=== PATIENT | female | born 1940 | race Caucasian/White ===

== ENCOUNTER 2021-06-26 18:13 | Emergency (ER) | payer MEDICARE ==
[2021-06-26 18:59] VITALS: TEMP 97.9
[2021-06-26] MEDS ORDERED: LIDOCAINE/EPINEPHR/TETRACAINE 5 ML BOTTLE TOPICAL ONE (19:39)
[2021-06-26] MEDS ORDERED: DIPH,PERTUS(ACELL)TETVAC-LF 0.5 ML VIAL IM ONE (19:46)
[2021-06-26] MEDS ORDERED: ACETAMINOPHEN TAB 500 MG TAB PO STA (19:48)
--- NOTE | 2021-06-26 21:06 | XR ---
EXAMINATION TYPE: XR ribs RT w pa chest xray DATE OF EXAM: 06/26/2021 CLINICAL HISTORY: Rib pain. Fall while walking dog, right-sided rib pain TECHNIQUE: Single frontal view of the chest is obtained. 4 views of the right ribs obtained. COMPARISON: None FINDINGS: Cardiac mediastinal silhouette normal in size. Pulmonary vasculature normal. No acute focal airspace opacity, pleural effusion, or pneumothorax. There are mildly displaced fractures of right r ibs 7 and 8 anterolaterally, and questionable nondisplaced fracture of rib 9 anterolaterally. IMPRESSION: 1. Mildly displaced fractures of right ribs 7 and 8 anterolaterally. Questionable nondisplaced fractu re of right rib 9 anterolaterally. 2. No acute pulmonary process.
--- NOTE | 2021-06-26 21:21 | ED ---
General Adult HPI <Raleigh Soni - Last Filed: 06/26/21 21:25> - General Source: patient, RN notes reviewed, old records reviewed Mode of arrival: ambulatory Limitations: no limitations <Byron Lewis - Last Filed: 06/26/21 22:45> - General Chief complaint: Head Injury Stated complaint: Fall/Head Injury Time Seen by Provider: 06/26/21 19:14 - History of Present Illness Initial comments: I evaluated the patient and she was placed in a room. Patient is a 81-year-old female presents emergency Department following a trip and fall. Patient is a history of asthma. She is not on blood thinners. Patient was walking her dog when the dog jolted and attempted to to squirrel. Patient was pulled down on the ground. She landed primarily onto her right ribs. She also bumped her head on the pavement. She denies loss of consciousness. She was ambulatory afterwards. She denies any headache, fevers, chills. Denies any difficulty in breathing, abdominal pain, nausea, vomiting. Denies any blurry vision, weakness, numbness. She states she feels fine other than pain in her right ribs as well as some bleeding over a small laceration over her right forehead. She is not up-to-date on her tetanus shot. She'll ice is no acute complaints at this time. She denies any back pain. (Byron Lewis) - Related Data Home Medications Medication Instructions Recorded Confirmed Albuterol Inhaler [Ventolin Hfa 2 puff INHALATION RT-Q4H PRN 06/26/21 06/26/21 Inhaler] Atorvastatin [Lipitor] 20 mg PO HS 06/26/21 06/26/21 Beclomethasone Dip 80 Mcg/Puff 1 puff INHALATION RT-BID 06/26/21 06/26/21 [Qvar 80 mcg] Calcium Carbonate [Calcium] 600 mg PO DAILY 06/26/21 06/26/21 Hyoscyamine Sulfate [Levsin-Sl] 0.125 mg SL TID 06/26/21 06/26/21 LORazepam 0.5 mg PO BID PRN 06/26/21 06/26/21 Levothyroxine Sodium 100 mcg PO AC-BRKFST 06/26/21 06/26/21 Multivit with Calcium,Iron,Min 1 tab PO DAILY 06/26/21 06/26/21 [Women's Multivitamin] Sertraline [Zoloft] 25 mg PO HS 06/26/21 06/26/21 Ubidecarenone [Co Q-10] 100 mg PO DAILY 06/26/21 06/26/21 rOPINIRole HCL [Requip] 2 mg PO HS 06/26/21 06/26/21 Previous Rx's Medication Instructions Recorded Lidocaine 5% Patch [Lidoderm 5% 1 patch TOPICAL DAILY PRN 14 Days 06/26/21 Patch] #14 patch Allergies Allergy/AdvReac Type Severity Reaction Status Date / Time Penicillins Allergy Itching Verified 06/26/21 21:09 Sulfa (Sulfonamide Allergy Rash/Hives/ Verified 06/26/21 21:09 Antibiotics) Fever Review of Systems ROS Other: All systems not noted in ROS Statement are negative. <Raleigh Soni - Last Filed: 06/26/21 21:25> ROS Other: All systems not noted in ROS Statement are negative. <Byron Lewis - Last Filed: 06/26/21 22:45> ROS Statement: Those systems with pertinent positive or pertinent negative responses have been documented in the HPI. Review of Systems: CONST: Denies fever EYES: Denies blurry vision ENT: Denies nasal congestion C/V: Denies Chest pain RESP: Denies shortness of breath GI: Denies abdominal pain : Denies dysuria SKIN: Endorses forehead laceration MSK: Endorses right-sided rib pain NEURO: Denies headache (Byron Lewis) Past Medical History Past Medical History: No Reported History History of Any Multi-Drug Resistant Organisms: None Reported Past Surgical History: No Surgical Hx Reported Past Psychological History: Anxiety, Depression Smoking Status: Never smoker Past Alcohol Use History: Daily Past Drug Use History: None Reported <Byron Lewis - Last Filed: 06/26/21 22:45> General Exam Limitations: no limitations <Byron Lewis - Last Filed: 06/26/21 22:45> - General Exam Comments Initial Comments: General: Appears in no acute distress. HEAD: Patient has a small 1-2 cm linear laceration located over her right forehead above her right eyebrow. There is a small contusion surrounding the site. She is no obvious step-offs or deformities of the skull. No other obvious injuries of the skull. Bowel sign negative. Hemotympanum negative. Raccoon eyes negative. No tenderness to palpation over the facial bones. EYES: PERRLA, EOMI, conjunctiva normal, no discharge. Pupils are 3 mm and equally reactive. ENT: Hearing grossly intact, normal oropharynx. RESPIRATORY: Clear breath sounds bilaterally. No wheezes, rales, or rhonchi. C/V: Regular rate and rhythm. S1 and S2 auscultated, no edema, peripheral pulses 2+ and intact throughout ABD: Abd is soft, nontender, nondistended EXT:. Patient has no midline cervical, thoracic, lumbar spine tenderness palpation of her pelvis is stable. She is no tenderness palpation of any extremity. She does have some tenderness palpation over the inferior ribs on the right side in the mid to anterior axillary lines. SKIN: 1-2 semilunar laceration located over the right forehead. NEURO: Alert and oriented x 4. Cranial nerves II-XII intact. No focal sensory or strength deficits. Patient is able to ambulate without difficulty. Cerebellar function is intact as evident by normal finger nose testing. GCS is 15. NIH is 0. (Byron Lewis) Course Vital Signs 06/26/21 06/26/21 18:51 22:12 Temperature 97.9 F Pulse Rate 66 85 Respiratory 20 16 Rate Blood Pressure 163/86 159/88 O2 Sat by Pulse 96 95 Oximetry Procedures - Laceration Laceration #1 Consent Obtained: verbal consent Indication: laceration Site: face Size (cm): 1 Description: linear Depth: simple, single layer Anesthetic Used: lidocaine 1% (LET) Type of Sutures: nylon Size of Sutures: 5-0 Number of Sutures: 2 Technique: simple, interrupted Patient Tolerated Procedure: well, no complications <Raleigh Soni - Last Filed: 06/26/21 21:25> - Laceration Laceration #1 Additional Comments: Secured with Steri-Strips (Raleigh Soni) Medical Decision Making <Byron Lewis - Last Filed: 06/26/21 22:45> - Medical Decision Making Based on patient's presentation and physical exam, I'm concerned for possible rib fractures on the right. She also has a linear laceration over her right forehead that will require closure with sutures. Based on Medium head CT rules, she does not require a CT brain at this time. Neuro exam is completely normal. Patient was in agreement this plan. She'll be given Tylenol for analgesia, a tetanus booster, and a mid-level provider will close her laceration. We will also obtain chest x-ray with right-sided ribs. She was in agreement this plan. Please see the separate procedure note for laceration repair. She tolerated the procedure well. Chest x-ray revealed mildly displaced fractures of right ribs 7 and 8 anterolaterally questionable nondisplaced fracture of the right rib 9 anterolaterally. There is no acute pulmonary process. Reevaluation, patient's lacerations been closed. I discussed with her the results of her chest x-ray. She has suffered broken ribs previously, and understands that she does not require surgical attention at this time. I do believe it is safer to be discharged home. We will provide her with an incentive spirometer as well as lidocaine patches. We'll provide with lidocaine patch in the department. She was in agreement this plan. I will provide the patient with a prescription for lidocaine patch. I instructed the patient to follow up with their PCP in the next 3 days. . I explained that the patient should return to the emergency department if they experience any worsening symptoms. Strict return precautions were discussed with the patient. The patient expressed understanding of these instructions. I answered all questions that the patient had. The patient was discharged home in fair condition with their prescriptions and follow up information. (Byron Lewis) Disposition <Raleigh Soni - Last Filed: 06/26/21 21:25> Is patient prescribed a controlled substance at d/c from ED?: No <Byron Lewis - Last Filed: 06/26/21 22:45> Clinical Impression: Fall, Laceration of forehead, Sutured skin wound, Rib fractures Disposition: HOME SELF-CARE Condition: Fair Instructions (If sedation given, give patient instructions): Rib Fracture (ED) Prescriptions: Lidocaine 5% Patch [Lidoderm 5% Patch] 1 patch TOPICAL DAILY PRN 14 Days #14 patch PRN Reason: Pain Referrals: Nonstaff,Physician [Primary Care Provider] - 1-2 days Lucille Danielle DO [Doctor of Osteopathic Medicine] - 1-2 days
[2021-06-26] MEDS ORDERED: LIDOCAINE 5% PATCH TOPICAL STA (22:05)
[2021-06-26 22:13] VITALS: BP 159/88; PULSE 85; RESP 16
== END 2021-06-26 22:13 | disposition home or self-care (01) ==
LOC: EC 18:13
DX: S22.41XA Multiple fractures of ribs, right side, initial encounter for closed fracture (principal); S01.81XA Laceration without foreign body of other part of head, initial encounter; J45.909 Unspecified asthma, uncomplicated; F32.9 Major depressive disorder, single episode, unspecified; F41.9 Anxiety disorder, unspecified; Z79.51 Long term (current) use of inhaled steroids; Z79.899 Other long term (current) drug therapy; Z88.0 Allergy status to penicillin; Z88.2 Allergy status to sulfonamides; Z23 Encounter for immunization; W01.0XXA Fall on same level from slipping, tripping and stumbling without subsequent striking against object, initial encounter; Y93.K1 Activity, walking an animal
CPT/HCPCS: 12011; 90471; 90715; 99284

== ENCOUNTER → 2023-07-02 | Outpatient (CLI) | payer MEDICARE ==
[2023-07-02 16:27] LABS: African American GFR (CKD) 87 (>60 ml/min/1.73 sqM); Blood Urea Nitrogen 13 mg/dL (7-17); Non-African American GFR(CKD) 75 (>60 ml/min/1.73 sqM)
--- NOTE | 2023-07-02 18:14 | CA ---
Transthoracic Echo Report Name: Karen Ortega Age: 83 Gender: F : 1940 Exam Date: 07/02/2023 16:08 Exam Location: [facility] Ht (in): 63 Wt (lb): 160 Ordering Physician: Miranda Pickering MD Attending/Referring Phys: [employer] Machine Operator Obdulia Tapia [facility] Procedure CPT: Indications: R06.09 Dyspnea Cardiac Hx: Technical Quality: Fair Contrast 1: Total Dose (mL): Contrast 2: Total Dose (mL): MEASUREMENTS (Male / Female) Normal Values 2D ECHO LV Diastolic Diameter PLAX 4.2 cm 4.2 - 5.9 / 3.9 - 5.3 cm LV Systolic Diameter PLAX 3.1 cm IVS Diastolic Thickness 0.9 cm 0.6 - 1.0 / 0.6 - 0.9 cm LVPW Diastolic Thickness 0.8 cm 0.6 - 1.0 / 0.6 - 0.9 cm LV Relative Wall Thickness 0.4 LVOT Diameter 2.0 cm Ascending Aorta Diameter 4.0 cm M-MODE Aortic Root Diameter MM 3.1 cm LA Systolic Diameter MM 3.6 cm LA Ao Ratio MM 1.2 AV Cusp Separation MM 1.9 cm DOPPLER AV Peak Velocity 113.0 cm/s AV Peak Gradient 5.1 mmHg AV Mean Velocity 80.7 cm/s AV Mean Gradient 2.9 mmHg AV Velocity Time Integral 20.7 cm AI Peak Velocity 483.1 cm/s AI Peak Gradient 93.4 mmHg AI Pressure Half Time 571.7 ms LVOT Peak Velocity 95.0 cm/s LVOT Peak Gradient 3.6 mmHg LVOT Velocity Time Integral 18.1 cm LVOT Stroke Volume 58.4 cm??? LVOT Stroke Volume Index 33.2 ml/m??? LVOT Cardiac Index 2279.7 cm???/min???m??? AV Area Cont Eq vti 2.8 cm??? AV Area Cont Eq pk 2.7 cm??? Mitral E Point Velocity 27.6 cm/s Mitral A Point Velocity 56.6 cm/s Mitral E to A Ratio 0.5 MV Deceleration Time 177.1 ms LV E' Lateral Velocity 3.2 cm/s Mitral E to LV E' Lateral Ratio 8.7 LV E' Septal Velocity 4.6 cm/s Mitral E to LV E' Septal Ratio 6.0 Right Atrial Pressure 3.0 mmHg FINDINGS Left Ventricle Left ventricular wall thickness normal. Left ventricular cavity size normal. Low normal left ventricular systolic function with no obvious regional wall motion abnormalities. Left ventricular ejection fraction is estimated at 50- 55%. Right Ventricle Normal right ventricular size and function. Unable to estimate the right ventricular systolic pressure. Right Atrium Normal right atrial size. Left Atrium Normal left atrial size. Mitral Valve Structurally normal mitral valve. Mitral valve thickened. No mitral regurgitation. Aortic Valve Trileaflet aortic valve. Moderate aortic regurgitation.aortic valve sclerosis. Tricuspid Valve Structurally normal tricuspid valve. Trace tricuspid regurgitation. Pulmonic Valve Structurally normal pulmonic valve. No pulmonic regurgitation. Pericardium No pericardial effusion. Echo free space anterior to the right ventricle likely represents a fat pad. Aorta Normal size aortic root and mildly dilated proximal ascending aorta. CONCLUSIONS 1. Left ventricular systolic function borderline normal 2. Moderate aortic regurgitation, aortic sclerosis with no evidence of stenosis Previewed by: Dr. Flaquito Burgess MD (Electronically Signed) Final Date: 02 July 2023 18:13
--- NOTE | 2023-07-04 18:17 | CT ---
EXAMINATION TYPE: CT angio chest CT DLP: 340.3 mGycm, Automated exposure control for dose reduction was used. DATE OF EXAM: 07/02/2023 5:05 PM COMPARISON: Chest radiograph 06/24/2023 CLINICAL INDICATION:Female, 83 years old with history of R06.09 DYSPNEA; dyspnea x 4 months TECHNIQUE/CONTRAST: CTA scan of the thorax is performed with IV Contrast, patient injected with 80 cc mL of Isovue 370, M IP images are created and reviewed these are created on a separate workstation.. FINDINGS: Pulmonary Artery: There is no evidence for a filling defect within the pulmonary vasculature to sugge st acute pulmonary embolism. The pulmonary artery is of normal size. Lungs/Pleura: No evidence of focal consolidation, pleural effusion or pneumothorax. Streaky atelectas is present within the lung bases and along the posterior peripherally. Airway: Large airways are patent. Mild centrilobular emphysema changes. Heart: Heart is within normal limits for size. 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 Atherosclerosis of the arterial vasculatu re. Mediastinum: No gross evidence of adenopathy. Small hiatal hernia is present. Musculoskeletal: Mild degenerative disc disease changes are present throughout the thoracolumbar spin e. Soft Tissues: Unremarkable. Lower neck: No significant findings. Upper Abdomen: No significant findings. IMPRESSION: 1. No evidence of pulmonary embolism. 2. Mild centrilobular emphysema. 3. 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 4. Cdqn-rx-vkjqxswh coronary artery atherosclerosis. 5. Small hiatal hernia.
== END | disposition home or self-care (01) ==
LOC: RADCTMAIN 15:31
PROVIDERS: ATTEND Internal Medicine Critical Care Medicine
DX: J43.2 Centrilobular emphysema (principal); K44.9 Diaphragmatic hernia without obstruction or gangrene; I25.10 Atherosclerotic heart disease of native coronary artery without angina pectoris; R06.09 Other forms of dyspnea
CPT/HCPCS: 93306; 82565; 84520; 71275; 36415; Q9967

== ENCOUNTER → 2023-07-28 | Outpatient (CLI) | payer MEDICARE ==
--- NOTE | 2023-07-28 10:44 | MR ---
EXAMINATION TYPE: MR brain wo con DATE OF EXAM: 07/28/2023 COMPARISON: NONE HISTORY: Mild cognitive impairment, Parkinson's disease. TECHNIQUE: T1-weighted sagittal, T2, FLAIR, and diffusion axial, and T2 coronal coronal views of the brain are submitted. FINDINGS: There is no evidence of acute ischemia. Moderate generalized degenerative change. Multiple prominent Virchow-Theodore spaces are seen in association with hypertension. Mild confluent and focal areas of abn ormal signal white matter nonspecific but most of a remote white matter ischemia. There is no mass ef fect. Craniocervical junction maintained. Sella turcica has a normal appearance. Orbits are symmetric and there are changes of mild to moderate chronic sinusitis. Minimal left-sided mastoiditis. Prominent cisterna magna. No cerebellopontine angle mass. IMPRESSION: 1. No acute intracranial process. 2. Zprk-ea-oobzcpif degenerative and mild remote ischemic white matter change. 3. Jzlt-te-mmbgabza chronic sinusitis.
== END | disposition home or self-care (01) ==
LOC: RADMRIMAIN 08:54
PROVIDERS: ATTEND Psychiatry & Neurology Neurology
DX: G20.C Parkinsonism, unspecified (principal); G31.84 Mild cognitive impairment of uncertain or unknown etiology; G25.81 Restless legs syndrome; E61.1 Iron deficiency; G93.89 Other specified disorders of brain; J32.9 Chronic sinusitis, unspecified; G31.89 Other specified degenerative diseases of nervous system
CPT/HCPCS: 70551

== ENCOUNTER → 2023-08-05 | Outpatient (CLI) | payer MEDICARE ==
--- NOTE | 2023-08-05 16:19 | US ---
EXAMINATION TYPE: US venous doppler duplex LE LT DATE OF EXAM: 08/05/2023 4:09 PM COMPARISON: NONE CLINICAL INDICATION: Female, 83 years old with history of M79.605 PAIN IN LEFT LEG; Pain x 1 week aft er patient fell. No hx of DVT. Patient does not take blood thinners. SIDE PERFORMED: Left TECHNIQUE: The lower extremity deep venous system is examined utilizing real time linear array sonog belén with graded compression, doppler sonography and color-flow sonography. VESSELS IMAGED: Common Femoral Vein Deep Femoral Vein Greater Saphenous Vein * Femoral Vein Popliteal Vein Small Saphenous Vein * Proximal Calf Veins (* superficial vessels) Left Leg: No evidence of DVT. IMPRESSION: No evidence of DVT
== END | disposition home or self-care (01) ==
LOC: RADUSWWP 15:26
PROVIDERS: ATTEND Internal Medicine
DX: M79.605 Pain in left leg (principal); I35.1 Nonrheumatic aortic (valve) insufficiency

== ENCOUNTER → 2024-05-29 | Outpatient (CLI) | payer MEDICARE ==
--- NOTE | 2024-06-27 09:02 | NM ---
Site ID [facility] Patient Karen Ortega ID [id number] Order # Procedure Bone Scan LOW BACK PAIN LUMBAR REGION. 21.8 mCi MDP @850 AM EXAMINATION TYPE: NM bone scan whole body DATE OF EXAM: 06/01/2024 1:07 PM CLINICAL INDICATION:LOW BACK PAIN LUMBAR REGION. COMPARISON: THIS EXAM WAS READ DURING PACS DOWNTIME, NO PRIORS AVAILABLE. TECHNIQUE: Intravenous administration 21.8 mCi Tc 99m MDP followed by multiple scintigraphic images o f the appendicular and axial skeleton. Small [id number] imaging of the abdomen and lumbar spine we re also performed. Images acquired 3 hours post injection. FINDINGS: No abnormal uptake is identified within the appendicular or axial skeleton to suggest metastatic dise ase. Mild uptake within the L4-L5 vertebral bodies There is increased uptake within the bilateral shoulder, sternoclavicular, and sacroiliac joints con sistent with degenerative changes. No other photopenic areas or areas of increased activity are ident ified. Physiologic radiotracer activity is demonstrated in the kidneys and bladder. IMPRESSION: Degenerative uptake within the L4-L5 vertebral bodies. Findings possibly related to degeneration with compression deformities not excluded excluded. The MRI for further evaluation.
== END | disposition home or self-care (01) ==
LOC: RADNMMAIN 08:27
PROVIDERS: ATTEND Physical Medicine & Rehabilitation
DX: M51.36 Other intervertebral disc degeneration, lumbar region (principal)
CPT/HCPCS: 78306; A9503